=== PATIENT | male | born 1960 | race Caucasian/White ===

== ENCOUNTER 2017-09-13 15:58 | Inpatient (IN) | payer MEDICAID, OTHER ==
[~2017-09-13] VITALS: Ht 175.3 cm; Wt 106.8 kg
[2017-09-13] MEDS ORDERED: normal saline 1000ML IV soln IV ONE (16:30)
[2017-09-13 17:12] LABS: BASOPHILS % (AUTO) 0.1 % (0-1); EOSINOPHILS # (AUTO) 0.1 X10'3 (0-0.9); EOSINOPHILS % (AUTO) 0.5 % (0-6); HEMATOCRIT 41.8 % (42.0-52.0); HEMOGLOBIN 14.8 g/dl (14.0-17.9); LYMPHOCYTES # (AUTO) 1.2 X10'3 (1.1-4.8); LYMPHOCYTES % (AUTO) 7.2 % (21-51); MEAN CORPUSCULAR HEMOGLOBIN 34.4 PG (27.0-31.0); MEAN CORPUSCULAR HGB CONC 35.4 % (33.0-36.5); MEAN PLATELET VOLUME 9.2 FL (7.4-10.4); MONOCYTES # (AUTO) 0.7 X10'3 (0-0.9); MONOCYTES % (AUTO) 4.5 % (2-12); NEUTROPHILS # (AUTO) 14.2 X10'3 (1.8-7.7); NEUTROPHILS % (AUTO) 87.7 % (42-75); PLATELET COUNT 132 X10'3 (140-440); RED BLOOD COUNT 4.31 X10'6 (4.70-6.10); RED CELL DISTRIBUTION WIDTH 12.4 % (11.5-14.5); WHITE BLOOD COUNT 16.1 X10'3 (4.5-11.0)
[2017-09-13 17:22] LABS: ALANINE AMINOTRANSFERASE 92 U/L (12-78); ALBUMIN/GLOBULIN RATIO 0.5 (1.1-1.5); ALKALINE PHOSPHATASE 271 IU/L (46-116); ANION GAP 11 (8-16); ASPARTATE AMINO TRANSFERASE 52 U/L (10-37); BILIRUBIN,TOTAL 0.9 MG/DL (0.1-1.0); BLOOD UREA NITROGEN 39 MG/DL (7-18); BUN/CREATININE RATIO 20.2 (5.4-32.0); CALCIUM 9.1 MG/DL (8.5-10.1); CHLORIDE 85 MMOL/L (99-107); CREATININE 1.93 MG/DL (0.60-1.10); GLUCOSE 174 MG/DL (70-104); SODIUM 125 MMOL/L (135-145); TOTAL CARBON DIOXIDE 29.4 MMOL/L (24-32); TOTAL PROTEIN 9.1 G/DL (6.4-8.2); eGFR 36 ML/MIN
[2017-09-13 17:27] LABS: POTASSIUM 2.2 MMOL/L (3.5-5.1)
[2017-09-13] MEDS ORDERED: potassium Cl oral solution 20 MEQ/15 ML PO ONE (17:40)
[2017-09-13 17:48] LABS: ETHANOL < 0.010 GM/DL (0.0-0.010)
[2017-09-13] MEDS ORDERED: vancomycin/NS 1 GM ADD-VANTAGE 250 ML IV ONE (17:50)
[2017-09-13] MEDS ORDERED: piperacillin/tazo 3.375gm/50ml 50 ML IV ONE (17:50)
[2017-09-13] MEDS ORDERED: iohexol 300mg/ml 100ml inj. ONE (17:52)
[2017-09-13] MEDS ORDERED: ondansetron/PF 4mg/2ml inj IV ONE (17:55)
[2017-09-13] MEDS ORDERED: morphine 4 MG/ML inj SYRINge IV ONE (17:55)
[2017-09-13 18:31] LABS: CLARITY,URINE CLOUDY (Clear); COLOR,URINE YELLOW (Yellow); GLUCOSE, URINE 100 mg/dl (Neg); KETONES,URINE NEGATIVE (Neg); LEUKOCYTE ESTERASE ,URINE NEGATIVE (Neg); NITRITES, URINE NEGATIVE (Neg); OCCULT BLOOD,URINE TRACE-LYSED (Neg); PROTEIN,URINE 30 mg/dl (Neg)
[2017-09-13 18:35] LABS: UA COLLECTION TYPE CLN CATCH MIDSTREAM
[2017-09-13 18:37] LABS: SQUAMOUS EPITHELIAL CELL,UR FEW /LPF (FEW)
[2017-09-13 18:38] LABS: BACTERIA,URINE 2+ /HPF (Neg); RBC,URINE 0-2 /HPF (0-2)
[2017-09-13 18:42] LABS: URINE AMPHETAMINE SCREEN NEGATIVE (Neg); URINE BARBITUATE SCREEN NEGATIVE (Neg); URINE BENZODIAZEPINES SCREEN NEGATIVE (Neg); URINE CANNABINOID SCREEN NEGATIVE (Neg); URINE COCAINE SCREEN NEGATIVE (Neg); URINE METHADONE SCREEN NEGATIVE (Neg); URINE OPIATE SCREEN NEGATIVE (Neg); URINE PHENCYCLIDINE SCREEN NEGATIVE (Neg)
[2017-09-13] MEDS: K and/or MAG REPLACEMENT MC SCH (19:25)
[2017-09-13] MEDS ORDERED: LORazepam 2 mg/ml vial IV PRN (19:25)
[2017-09-13] MEDS ORDERED: magnesium hydroxide 30ml (MOM) UD suspension PO PRN (19:25)
[2017-09-13] MEDS ORDERED: morphine 4 MG/ML inj SYRINge IV PRN ×2 (19:25)
[2017-09-13] MEDS ORDERED: ondansetron/PF 4mg/2ml inj IV PRN (19:25)
[2017-09-13] MEDS ORDERED: potassium Cl 40MEQ/NS 500ml 500 ML IV PRN ×2 (19:25)
[2017-09-13] MEDS ORDERED: thiamine 100mg/ml 2ml inj. IV ONE (19:25)
[2017-09-13] MEDS ORDERED: potassium Cl 20 mEq SR tablet PO PRN (19:25)
[2017-09-13] MEDS ORDERED: mag hydrox/Alum hydrox/simeth 30ml oral suspension PO PRN (19:25)
[2017-09-13] MEDS ORDERED: haloperidol lactate 5mg/ml inj IM PRN (19:25)
[2017-09-13] MEDS ORDERED: magnesium 1gm/100ml D5W IVPB 100 ML IV PRN (19:25)
[2017-09-13] MEDS ORDERED: haloperidol 5mg tablet PO PRN (19:25)
[2017-09-13] MEDS ORDERED: magnesium 4gm in 100ml NS 100 ML IV PRN (19:25)
[2017-09-13] MEDS ORDERED: dextrose 50%-water 50ml dispensing syringe IV PRN (19:25)
[2017-09-13] MEDS ORDERED: ipratropium/albuterol 3ml nebule NEB PRN (19:25)
[2017-09-13] MEDS ORDERED: IBUP-1984 PO (19:51)
[2017-09-13] MEDS: normal saline 1000ml 1,000 ML IV SCH (20:12)
[2017-09-13] MEDS ORDERED: HYDROmorphone 1 mg/ml syringe IV PRN (22:15)
[2017-09-13 22:25] LABS: ALANINE AMINOTRANSFERASE 73 U/L (12-78); ALBUMIN 2.4 G/DL (3.4-5.0); ALBUMIN/GLOBULIN RATIO 0.5 (1.1-1.5); ALKALINE PHOSPHATASE 210 IU/L (46-116); ANION GAP 7 (8-16); ASPARTATE AMINO TRANSFERASE 45 U/L (10-37); BILIRUBIN,TOTAL 0.8 MG/DL (0.1-1.0); BLOOD UREA NITROGEN 32 MG/DL (7-18); BUN/CREATININE RATIO 20.4 (5.4-32.0); CHLORIDE 93 MMOL/L (99-107); CREATININE 1.57 MG/DL (0.60-1.10); GLUCOSE 142 MG/DL (70-104); MAGNESIUM 1.3 MG/DL (1.5-2.4); SODIUM 128 MMOL/L (135-145); TOTAL CARBON DIOXIDE 28.3 MMOL/L (24-32); TOTAL PROTEIN 7.5 G/DL (6.4-8.2); eGFR 45 ML/MIN
[2017-09-13 22:30] VITALS: BP 149/88
[2017-09-13 22:30] LABS: POTASSIUM 2.8 MMOL/L (3.5-5.1)
[2017-09-13] MEDS: HYDROmorphone 1 mg/ml syringe IV PRN (22:58)
[2017-09-13] MEDS: potassium Cl 20 mEq SR tablet PO PRN (23:05)
[2017-09-13] MEDS: acetaminophen 325mg tablet PO PRN (23:37)
[2017-09-13] MEDS: nicotine 14mg patch - 24hr TD SCH (23:38)
[2017-09-14] VITALS: BP 114/65
[2017-09-14] MEDS: cefepime 1GM/NS ADD-VANTAGE 100 ML IV SCH ×3 (00:18→17:49)
[2017-09-14] MEDS: potassium Cl 20 mEq SR tablet PO PRN ×2 (03:32→08:24)
[2017-09-14] MEDS: HYDROmorphone 1 mg/ml syringe IV PRN ×4 (03:46→20:55)
[2017-09-14] MEDS: normal saline 1000ml 1,000 ML IV SCH ×2 (05:24→13:38)
[2017-09-14 07:36] VITALS: BP 122/73
[2017-09-14] MEDS: K and/or MAG REPLACEMENT MC SCH (08:20)
[2017-09-14] MEDS: enoxaparin 30mg/0.3ml syringe SQ SCH (08:24)
[2017-09-14] MEDS: nicotine 14mg patch - 24hr TD SCH (08:25)
[2017-09-14 09:19] LABS: ALANINE AMINOTRANSFERASE 62 U/L (12-78); ALBUMIN 2.2 G/DL (3.4-5.0); ALBUMIN/GLOBULIN RATIO 0.4 (1.1-1.5); ALKALINE PHOSPHATASE 203 IU/L (46-116); ANION GAP 5 (8-16); ASPARTATE AMINO TRANSFERASE 37 U/L (10-37); BASOPHILS # (AUTO) 0.1 X10'3 (0-0.2); BASOPHILS % (AUTO) 0.3 % (0-1); BILIRUBIN,TOTAL 0.9 MG/DL (0.1-1.0); BLOOD UREA NITROGEN 23 MG/DL (7-18); BUN/CREATININE RATIO 16.4 (5.4-32.0); CALCIUM 8.1 MG/DL (8.5-10.1); CHLORIDE 94 MMOL/L (99-107); EOSINOPHILS # (AUTO) 0.1 X10'3 (0-0.9); EOSINOPHILS % (AUTO) 0.6 % (0-6); GLUCOSE 189 MG/DL (70-104); HEMATOCRIT 39.1 % (42.0-52.0); HEMOGLOBIN 13.6 g/dl (14.0-17.9); LYMPHOCYTES # (AUTO) 1.4 X10'3 (1.1-4.8); MAGNESIUM 1.9 MG/DL (1.5-2.4); MEAN CORPUSCULAR HEMOGLOBIN 34.2 PG (27.0-31.0); MEAN CORPUSCULAR HGB CONC 34.8 % (33.0-36.5); MEAN CORPUSCULAR VOLUME 98.2 FL (78-98); MEAN PLATELET VOLUME 9.3 FL (7.4-10.4); MONOCYTES # (AUTO) 0.6 X10'3 (0-0.9); MONOCYTES % (AUTO) 3.6 % (2-12); NEUTROPHILS # (AUTO) 15.5 X10'3 (1.8-7.7); NEUTROPHILS % (AUTO) 87.5 % (42-75); PLATELET COUNT 116 X10'3 (140-440); RED BLOOD COUNT 3.98 X10'6 (4.70-6.10); RED CELL DISTRIBUTION WIDTH 12.4 % (11.5-14.5); SODIUM 126 MMOL/L (135-145); TOTAL CARBON DIOXIDE 27.3 MMOL/L (24-32); TOTAL PROTEIN 7.5 G/DL (6.4-8.2); WHITE BLOOD COUNT 17.8 X10'3 (4.5-11.0); eGFR 52 ML/MIN
[2017-09-14 09:20] LABS: POTASSIUM 3.2 MMOL/L (3.5-5.1)
[2017-09-14 11:52] VITALS: BP 117/78
[2017-09-14] MEDS: lactobacillus rhamnosus 10,000 MMU CELLS/CAPSULE PO SCH (19:02)
[2017-09-14] MEDS: acetaminophen 325mg tablet PO PRN (19:02)
[2017-09-14 20:01] VITALS: BP 117/63
[2017-09-15] VITALS: BP 111/62
[2017-09-15] MEDS: cefepime 1GM/NS ADD-VANTAGE 100 ML IV SCH ×4 (00:23→23:53)
[2017-09-15] MEDS: normal saline 1000ml 1,000 ML IV SCH ×3 (01:08→14:47)
[2017-09-15 07:41] VITALS: BP 124/69
[2017-09-15] MEDS: K and/or MAG REPLACEMENT MC SCH (08:00)
[2017-09-15] MEDS: lactobacillus rhamnosus 10,000 MMU CELLS/CAPSULE PO SCH ×2 (08:21→19:26)
[2017-09-15] MEDS: nicotine 14mg patch - 24hr TD SCH (08:27)
[2017-09-15] MEDS: enoxaparin 30mg/0.3ml syringe SQ SCH (08:29)
[2017-09-15] MEDS: HYDROmorphone 1 mg/ml syringe IV PRN ×3 (10:42→23:53)
[2017-09-15 11:00] VITALS: BP 133/72
[2017-09-15 18:00] VITALS: BP 102/60
[2017-09-15] MEDS ORDERED: LORazepam 2 mg/ml vial IV PRN (19:25)
[2017-09-15] MEDS ORDERED: LORazepam 1 MG tablet PO PRN (19:25)
[2017-09-15] MEDS: acetaminophen 325mg tablet PO PRN (19:26)
[2017-09-16] VITALS: BP 139/73
[2017-09-16] MEDS: normal saline 1000ml 1,000 ML IV SCH ×2 (02:09→17:28)
[2017-09-16] MEDS ORDERED: VANCOMYCIN LEVEL IV ONE ×2 (02:30→19:30)
[2017-09-16] MEDS: HYDROmorphone 1 mg/ml syringe IV PRN ×3 (04:36→19:19)
[2017-09-16 07:05] VITALS: BP 138/75
[2017-09-16] MEDS: K and/or MAG REPLACEMENT MC SCH (08:00)
[2017-09-16] MEDS: enoxaparin 30mg/0.3ml syringe SQ SCH ×2 (08:00→09:17)
[2017-09-16] MEDS: cefepime 1GM/NS ADD-VANTAGE 100 ML IV SCH ×3 (09:17→23:55)
[2017-09-16] MEDS: nicotine 14mg patch - 24hr TD SCH (09:18)
[2017-09-16] MEDS: lactobacillus rhamnosus 10,000 MMU CELLS/CAPSULE PO SCH ×2 (09:18→19:18)
[2017-09-16 09:39] LABS: ANION GAP 5 (8-16); BLOOD UREA NITROGEN 8 MG/DL (7-18); BUN/CREATININE RATIO 7.2 (5.4-32.0); CALCIUM 7.7 MG/DL (8.5-10.1); CHLORIDE 99 MMOL/L (99-107); CREATININE 1.11 MG/DL (0.60-1.10); GLUCOSE 177 MG/DL (70-104); POTASSIUM 3.3 MMOL/L (3.5-5.1); SODIUM 131 MMOL/L (135-145); TOTAL CARBON DIOXIDE 26.9 MMOL/L (24-32); eGFR 68 ML/MIN
[2017-09-16] MEDS ORDERED: iohexol 300mg/ml 100ml inj. ONE (11:05)
[2017-09-16 12:03] VITALS: BP 123/75
[2017-09-16] MEDS ORDERED: VANCOMYCIN LEVEL IV NR (14:30)
[2017-09-16 18:30] VITALS: BP 129/66
[2017-09-17] VITALS: BP 134/70
[2017-09-17] MEDS: HYDROmorphone 1 mg/ml syringe IV PRN ×3 (00:40→17:23)
[2017-09-17] MEDS: normal saline 1000ml 1,000 ML IV SCH ×3 (03:15→23:24)
[2017-09-17] MEDS: cefepime 1GM/NS ADD-VANTAGE 100 ML IV SCH (07:42)
[2017-09-17] MEDS: enoxaparin 30mg/0.3ml syringe SQ SCH (07:43)
[2017-09-17] MEDS: lactobacillus rhamnosus 10,000 MMU CELLS/CAPSULE PO SCH ×2 (07:59→20:31)
[2017-09-17 08:00] VITALS: BP 138/84
[2017-09-17] MEDS: K and/or MAG REPLACEMENT MC SCH (08:00)
[2017-09-17] MEDS: nicotine 14mg patch - 24hr TD SCH (08:00)
[2017-09-17] MEDS ORDERED: potassium Cl 20 mEq SR tablet PO STA (10:31)
[2017-09-17] MEDS ORDERED: potassium Cl 40MEQ/NS 500ml 500 ML IV PRN ×2 (10:35)
[2017-09-17] MEDS ORDERED: potassium Cl 20 mEq SR tablet PO PRN ×2 (10:35)
[2017-09-17] MEDS ORDERED: magnesium Cl slow-release 64mg tablet PO PRN (10:35)
[2017-09-17] MEDS ORDERED: magnesium 4gm in 100ml NS 100 ML IV PRN (10:35)
[2017-09-17] MEDS ORDERED: potassium Cl oral solution 20 MEQ/15 ML PO PRN ×2 (10:58)
[2017-09-17 11:00] VITALS: BP 135/80
[2017-09-17] MEDS ORDERED: potassium Cl oral solution 20 MEQ/15 ML PO ONE ×2 (11:00→11:05)
[2017-09-17] MEDS: clindamycin 600mg/D5W 50ml 50 ML IV SCH ×2 (14:27→20:31)
[2017-09-17] MEDS ORDERED: LORazepam 2 mg/ml vial IV PRN (19:25)
[2017-09-17] MEDS ORDERED: LORazepam 1 MG tablet PO PRN (19:25)
[2017-09-17 20:00] VITALS: BP 136/69
[2017-09-18] VITALS: BP 133/73
[2017-09-18] MEDS: normal saline 1000ml 1,000 ML IV SCH (01:27)
[2017-09-18] MEDS: clindamycin 600mg/D5W 50ml 50 ML IV SCH ×2 (01:28→07:59)
[2017-09-18] MEDS: HYDROmorphone 1 mg/ml syringe IV PRN (01:28)
[2017-09-18 07:21] VITALS: BP 142/93
[2017-09-18] MEDS: K and/or MAG REPLACEMENT MC SCH (07:56)
[2017-09-18] MEDS: nicotine 14mg patch - 24hr TD SCH (07:57)
[2017-09-18] MEDS: enoxaparin 30mg/0.3ml syringe SQ SCH (07:57)
[2017-09-18] MEDS: lactobacillus rhamnosus 10,000 MMU CELLS/CAPSULE PO SCH (07:57)
[2017-09-18] MEDS ORDERED: CLIN-5 PO (10:17)
== END 2017-09-18 11:05 | disposition home or self-care (01) | DRG 383 ==
LOC: ER 15:59 → SUR 3N 19:24 → CMPBEDREQ 20:47
PROVIDERS: ADMIT Family Medicine; ATTEND Family Medicine
PROC: BW2F1ZZ Computerized Tomography (CT Scan) of Neck using Low Osmolar Contrast (ICD-10-PCS; principal; 2017-09-13)
DX: L03.221 Cellulitis of neck (principal); N17.0 Acute kidney failure with tubular necrosis; E87.1 Hypo-osmolality and hyponatremia; E87.6 Hypokalemia; L02.831 Carbuncle of head [any part, except face]; M25.512 Pain in left shoulder; G89.29 Other chronic pain; B95.61 Methicillin susceptible Staphylococcus aureus infection as the cause of diseases classified elsewhere; F10.20 Alcohol dependence, uncomplicated; B19.20 Unspecified viral hepatitis C without hepatic coma; F17.210 Nicotine dependence, cigarettes, uncomplicated; Z59.0 Homelessness; Z91.19 Patient's noncompliance with other medical treatment and regimen; Z79.899 Other long term (current) drug therapy
CPT/HCPCS: 36415; 70491; 80048; 80053; 80202; 80305; 80320; 81001; 83605; 83735; 85025; 87040; 87070; 87075; 87077; 87186; 94760; 96365; 96375; 99285; A6212; A6213; A6223; J0692; J1170; J1650; J2270; J2405; J2543; J3370; J3411; J3475; J3490; J7030; Q9967